=== PATIENT | female | born 1995 | race Caucasian/White ===

== ENCOUNTER 2016-11-11 10:05 | Emergency (ER) | payer MEDICAID ==
[~2016-11-11] VITALS: Ht 160 cm; Wt 80.1 kg
[~2016-11-11 10:05] MED LIST: FERR325T20 PO; IBUP-1222 PO; OXYC-302 PO; PRENATALS
[2016-11-11] MEDS ORDERED: ONDANSETRON ODT 4 MG ONE (11:43)
[2016-11-11] MEDS ORDERED: MAALOX/HYOSCYAMINE/LIDOCAINE 45 ML BOTTLE ONE (11:43)
[2016-11-11] MEDS ORDERED: FAMOTIDINE 20 MG/2 ML IVP ONE (12:00)
[2016-11-11] MEDS ORDERED: SODIUM CHLORIDE 0.9% 1,000ML IVBOLUS ONE (12:00)
[2016-11-11] MEDS ORDERED: ONDANSETRON 2MG/ML, 2ML IVPush ONE (12:00)
[2016-11-11] MEDS ORDERED: MAALOX/HYOSCYAMINE/LIDOCAINE 45 ML BOTTLE PO ONE (12:00)
[2016-11-11 12:06] LABS: BLOOD UREA NITROGEN 15 mg/dL (7-18)
[2016-11-11 12:10] LABS: ASPARTATE AMINO TRANSFERASE 6 U/L (15-37)
[2016-11-11 12:41] LABS: PATH.CAST-FLAG NOT PRESENT; SPERM-FLAG NOT PRESENT; SRC-FLAG NOT PRESENT; XTAL-FLAG NOT PRESENT; YLC-FLAG NOT PRESENT
[2016-11-11 12:42] LABS: DIFF TOTAL CELLS COUNTED 100 CELL DIFF
[2016-11-11 12:43] LABS: ANISOCYTOSIS 1+; LARGE PLATELETS 1+; MICROCYTOSIS 2+; VERIFY COUNTS? YES
[2016-11-11 12:49] LABS: HCG UR OBC PASS
[2016-11-11] MEDS ORDERED: ONDANSETRON ODT 4 MG PO ONE (13:00)
[2016-11-11 14:09] VITALS: BP 132/61
== END 2016-11-11 14:10 | disposition home or self-care (01) ==
LOC: ED 13:52
DX: K80.70 Calculus of gallbladder and bile duct without cholecystitis without obstruction (principal); R10.11 Right upper quadrant pain
CPT/HCPCS: 36415; 76700; 80053; 81001; 81025; 83690; 85025; 87086; 99285; Q0162

== ENCOUNTER 2017-04-08 11:59 | Emergency (ER) | payer MEDICAID ==
[~2017-04-08] VITALS: Ht 160 cm; Wt 80.6 kg
[~2017-04-08 11:59] MED LIST changes: +FERR325T18 PO; -FERR325T20 PO
[2017-04-08 12:03] VITALS: BP 113/72
== END 2017-04-08 13:43 | disposition home or self-care (01) ==
LOC: ED 12:25
DX: O23.12 Infections of bladder in pregnancy, second trimester (principal); Z3A.14 14 weeks gestation of pregnancy
CPT/HCPCS: 81001; 87086; 99284

== ENCOUNTER 2017-07-02 12:37 | Observation (INO) | payer MEDICAID ==
[~2017-07-02] VITALS: Ht 160 cm; Wt 83.1 kg
[2017-07-02 13:36] LABS: BASOPHILS # (AUTO) 0.01 x10^3/uL (0-0.1); BASOPHILS % (AUTO) 0 % (0-1); EOSINOPHILS % (AUTO) 0 % (1-7); LYMPHOCYTES # (AUTO) 0.44 x10^3/uL (1-3.4); LYMPHOCYTES % (AUTO) 6 % (22-44); MD NO; MEAN CORPUSCULAR HEMOGLOBIN 19.6 pg (27.0-34.8); MEAN CORPUSCULAR VOLUME 63.2 fL (80-100); MEAN PLATELET VOLUME 8.1 fL (7.4-10.4); MONOCYTES # (AUTO) 0.38 x10^3/uL (0.2-0.8); MONOCYTES % (AUTO) 5 % (2-9); NEUTROPHILS # (AUTO) 7.15 x10^3/uL (1.8-6.8); NEUTROPHILS % (AUTO) 90 % (42-75); PLATELET COUNT 288 x10^3/uL (130-400); RED BLOOD COUNT 4.49 x10^6/uL (3.82-5.3); RED CELL DISTRIBUTION WIDTH 17.1 % (9.6-15.2)
[2017-07-02] MEDS ORDERED: PREN1TAB60 PO (13:37)
[2017-07-02 13:38] VITALS: BP 103/59
[2017-07-02 13:38] LABS: MICROSCOPIC INDICATED
[2017-07-02 13:48] LABS: ALANINE AMINOTRANSFERASE 21 U/L (12-78); ALBUMIN 2.7 g/dL (3.4-5.0); ANION GAP 9 mmol/L (5-15); CALCIUM 8.3 mg/dL (8.5-10.1); CHLORIDE 104 mmol/L (98-107); CREATININE 0.45 mg/dL (0.55-1.02)
[2017-07-02 13:50] LABS: ALKALINE PHOSPHATASE 115 U/L (45-117); BILIRUBIN,TOTAL 0.7 mg/dL (0.2-1.0); TOTAL PROTEIN 7.4 g/dL (6.4-8.2)
[2017-07-02 14:43] LABS: RAPID INFLUENZA A POSITIVE (Negative); RAPID INFLUENZA B Negative (Negative)
[2017-07-02] MEDS ORDERED: ACETAMINOPHEN 500 MG TABLET PO ONE (16:30)
[2017-07-02] MEDS ORDERED: LACTATED RINGERS 1,000 ML IVBOLUS ONE (17:00)
[2017-07-02] MEDS ORDERED: ACETAMINOPHEN 325 MG TABLET ONE ×2 (17:17→21:40)
[2017-07-02] MEDS: OSELTAMIVIR 75 MG CAPSULE PO SCH (17:21)
[2017-07-02] MEDS ORDERED: ACETAMINOPHEN 325 MG/10.15 ML UDC PO SCH (17:30)
[2017-07-02] MEDS ORDERED: LACTATED RINGERS 1,000 ML IV SCH ×2 (18:00→18:01)
[2017-07-03] MEDS: OSELTAMIVIR 75 MG CAPSULE PO SCH (09:03)
[2017-07-03] MEDS ORDERED: ACETAMINOPHEN 325 MG TABLET PO ONE (09:30)
== END 2017-07-03 10:20 | disposition home or self-care (01) ==
LOC: LDOP 12:37 → EDIP 13:30 → LDIP 16:52
PROVIDERS: ADMIT Obstetrics & Gynecology; ATTEND Obstetrics & Gynecology
DX: O76 Abnormality in fetal heart rate and rhythm complicating labor and delivery (principal); O99.52 Diseases of the respiratory system complicating childbirth; J10.1 Influenza due to other identified influenza virus with other respiratory manifestations; R65.10 Systemic inflammatory response syndrome (SIRS) of non-infectious origin without acute organ dysfunction; Z37.0 Single live birth; Z83.3 Family history of diabetes mellitus; Z82.49 Family history of ischemic heart disease and other diseases of the circulatory system; Z3A.28 28 weeks gestation of pregnancy
CPT/HCPCS: 36415; 59025; 80053; 81001; 83605; 84145; 85025; 87086; 87400; 96360; 96361; 99201; G0378; J7120; 99211; G0463

== ENCOUNTER 2017-09-05 09:24 | Inpatient (IN) | payer MEDICAID ==
[~2017-09-05] VITALS: Ht 160 cm; Wt 82.7 kg
[~2017-09-05 09:24] MED LIST changes: +PREN1TAB60 PO
[2017-09-05] MEDS ORDERED: OXYTOCIN 30U/ 0.9% NaCL 500ML 500 ML IV ONE (10:07)
[2017-09-05] MEDS ORDERED: OXYTOCIN 30U/ 0.9% NaCL 500ML 500 ML IV PRN (10:07)
[2017-09-05] MEDS ORDERED: D5%-LACTATED RINGERS 1,000 ML IV SCH (10:07)
[2017-09-05] MEDS ORDERED: LACTATED RINGERS 1,000 ML IV SCH (10:07)
[2017-09-05 10:24] VITALS: BP 117/79
[2017-09-05] MEDS ORDERED: TERBUTALINE 1 MG/ML, 1ML IVPush PRN (10:30)
[2017-09-05] MEDS ORDERED: PENICILLIN GK 5,000,000 UNITS in SODIUM CHLORIDE 0.9% 100 ML IVPB ONE (10:30)
[2017-09-05] MEDS ORDERED: FENTANYL PF 100 MCG/2ML IVPush PRN (10:30)
[2017-09-05] MEDS ORDERED: FENTANYL PF 100 MCG/2ML IV PRN (10:30)
[2017-09-05] MEDS ORDERED: ONDANSETRON 2MG/ML, 2ML IVPush PRN (10:30)
[2017-09-05 10:56] LABS: MEAN CORPUSCULAR HEMOGLOBIN 19.3 pg (27.0-34.8); MEAN CORPUSCULAR HGB CONC 31.2 g/dL (32.4-35.8); MEAN CORPUSCULAR VOLUME 61.9 fL (80-100); MEAN PLATELET VOLUME 8.6 fL (7.4-10.4); PLATELET COUNT 310 x10^3/uL (130-400); RED BLOOD COUNT 4.71 x10^6/uL (3.82-5.3); RED CELL DISTRIBUTION WIDTH 20.1 % (9.6-15.2)
[2017-09-05 11:07] LABS: BASOPHILS # (AUTO) 0.04 x10^3/uL (0-0.1); BASOPHILS % (AUTO) 1 % (0-1); EOSINOPHILS # (AUTO) 0.02 x10^3/uL (0-0.4); EOSINOPHILS % (AUTO) 0 % (1-7); LYMPHOCYTES # (AUTO) 1.76 x10^3/uL (1-3.4); LYMPHOCYTES % (AUTO) 21 % (22-44); MD SCAN; MONOCYTES # (AUTO) 0.36 x10^3/uL (0.2-0.8); MONOCYTES % (AUTO) 4 % (2-9); NEUTROPHILS # (AUTO) 6.39 x10^3/uL (1.8-6.8); NEUTROPHILS % (AUTO) 75 % (42-75)
[2017-09-05] MEDS ORDERED: OXYTOCIN 30U/ 0.9% NaCL 500ML 500 ML ONE (11:17)
[2017-09-05] MEDS ORDERED: NEWBORN KIT ONE (11:17)
[2017-09-05] MEDS ORDERED: FENTANYL PF 100 MCG/2ML ONE (13:18)
[2017-09-05] MEDS: OXYTOCIN 30U/ 0.9% NaCL 500ML 500 ML IV SCH ×2 (13:23→23:23)
[2017-09-05] MEDS ORDERED: RHOGAM FROM BLOOD BANK 1 NOTE EA IM/IV ONE (13:30)
[2017-09-05] MEDS ORDERED: OXYcodone/APAP 5/325MG TABLET PO PRN ×2 (13:30)
[2017-09-05] MEDS ORDERED: ONDANSETRON 2MG/ML, 2ML IV PRN (13:30)
[2017-09-05] MEDS ORDERED: ACETAMINOPHEN 325 MG TABLET PO PRN ×2 (13:30)
[2017-09-05] MEDS ORDERED: MEASLES,MUMPS&RUBELLA VACC/PF 0.5 ML SQ PRN (13:30)
[2017-09-05] MEDS ORDERED: MAGNESIUM HYDROXIDE 8%, 30ML UDC PO PRN (13:30)
[2017-09-05] MEDS ORDERED: DOCUSATE 100 MG CAPSULE PO PRN (13:30)
[2017-09-05] MEDS ORDERED: CALCIUM CARBONATE 500 MG TAB.CHEW PO PRN (13:30)
[2017-09-05] MEDS ORDERED: MISOPROSTOL 200 MCG TABLET PR PRN (13:30)
[2017-09-05] MEDS ORDERED: DIPH,PERTUSS(ACELL),TET VAC/PF NC IM-VACC PRN (13:30)
[2017-09-05] MEDS ORDERED: MISOPROSTOL 200 MCG TABLET ONE (13:35)
[2017-09-05] MEDS ORDERED: LIDOCAINE 1%, 20ML ONE (13:35)
[2017-09-05] MEDS ORDERED: PENICILLIN GK 2,500,000 UNITS in DEXTROSE 5% 100 ML IVPB SCH (14:30)
[2017-09-05] MEDS ORDERED: IBUPROFEN 600 MG TABLET ONE (14:39)
[2017-09-05] MEDS ORDERED: OXYcodone/APAP 5/325MG TABLET ONE (14:40)
[2017-09-05] MEDS: IBUPROFEN 600 MG TABLET PO PRN (14:49)
[2017-09-05 16:30] VITALS: BP 108/71
[2017-09-05 19:56] VITALS: BP 110/72
[2017-09-06 00:20] VITALS: BP 98/63
[2017-09-06 04:15] VITALS: BP 108/69
[2017-09-06 05:21] LABS: BASOPHILS # (AUTO) 0.05 x10^3/uL (0-0.1); BASOPHILS % (AUTO) 1 % (0-1); EOSINOPHILS # (AUTO) 0.05 x10^3/uL (0-0.4); EOSINOPHILS % (AUTO) 1 % (1-7); LYMPHOCYTES # (AUTO) 3.14 x10^3/uL (1-3.4); LYMPHOCYTES % (AUTO) 33 % (22-44); MD NO; MEAN CORPUSCULAR HEMOGLOBIN 18.7 pg (27.0-34.8); MEAN CORPUSCULAR HGB CONC 30.4 g/dL (32.4-35.8); MEAN CORPUSCULAR VOLUME 61.6 fL (80-100); MEAN PLATELET VOLUME 8.7 fL (7.4-10.4); MONOCYTES # (AUTO) 0.42 x10^3/uL (0.2-0.8); MONOCYTES % (AUTO) 4 % (2-9); NEUTROPHILS # (AUTO) 6.01 x10^3/uL (1.8-6.8); NEUTROPHILS % (AUTO) 62 % (42-75); PLATELET COUNT 291 x10^3/uL (130-400); RED BLOOD COUNT 4.49 x10^6/uL (3.82-5.3); RED CELL DISTRIBUTION WIDTH 19.9 % (9.6-15.2)
[2017-09-06 07:10] VITALS: BP 107/70
[2017-09-06] MEDS ORDERED: PRENATAL VIT/IRON/FA 1 EACH TABLET PO SCH (09:00)
[2017-09-06] MEDS: OXYTOCIN 30U/ 0.9% NaCL 500ML 500 ML IV SCH ×2 (09:23→19:23)
[2017-09-06] MEDS: IBUPROFEN 600 MG TABLET PO PRN (16:07)
[2017-09-06 19:30] VITALS: BP 122/78
[2017-09-07] MEDS: OXYTOCIN 30U/ 0.9% NaCL 500ML 500 ML IV SCH (05:23)
[2017-09-07 07:45] VITALS: BP 111/72
[2017-09-07] MEDS ORDERED: IBUP-1222 PO (09:49)
== END 2017-09-07 15:13 | disposition home or self-care (01) | DRG 775 ==
LOC: LDOP 09:24 → LDIP 10:30 → 2NW 16:20
PROVIDERS: ADMIT Obstetrics & Gynecology; ATTEND Obstetrics & Gynecology
PROC: 10E0XZZ Delivery of Products of Conception, External Approach (ICD-10-PCS; principal; 2017-09-05)
DX: O42.02 Full-term premature rupture of membranes, onset of labor within 24 hours of rupture (principal); Z37.0 Single live birth; Z3A.37 37 weeks gestation of pregnancy
CPT/HCPCS: 36415; 85025; 86850; 86900; 87081; 89060; J2540; J3010; J2590; J7120; Q0114

== ENCOUNTER 2019-05-25 07:46 | Emergency (ER) | payer MEDICAID ==
[~2019-05-25] VITALS: Ht 160 cm; Wt 92.0 kg
[2019-05-25 08:08] VITALS: BP 122/83
--- NOTE | 2019-05-25 08:21 | NUR ---
TASK RN: PT AMBULATORY TO ROOM FROM TRIAGE. C/O COUGH, CONGESTION AND OCCATIONAL FEVER X 2 DAYS. TAKING NYQUIL AND DAYQUIL WITH NO RELIEF. CALL LIGHT W/I REACH, AWAITING PROVIDER EVAL.
[2019-05-25] MEDS ORDERED: KETOROLAC 30 MG/1 ML IM ONE (09:30)
[2019-05-25] MEDS ORDERED: KETOROLAC 30 MG/1 ML ONE (09:44)
== END 2019-05-25 10:38 | disposition home or self-care (01) ==
LOC: ED 10:00
DX: J02.8 Acute pharyngitis due to other specified organisms (principal); B97.89 Other viral agents as the cause of diseases classified elsewhere
CPT/HCPCS: 96372; 99283; J1885

== ENCOUNTER 2019-07-20 07:32 | Emergency (ER) | payer MEDICAID ==
[~2019-07-20] VITALS: Ht 160 cm; Wt 91.4 kg
[2019-07-20 07:33] VITALS: BP 119/78
[2019-07-20] MEDS ORDERED: PHENAZOPYRIDINE 200 MG TABLET PO ONE (08:00)
[2019-07-20] MEDS ORDERED: PHENAZOPYRIDINE 200 MG TABLET ONE (08:09)
--- NOTE | 2019-07-20 08:12 | NUR ---
URINE COLLECTED AND WALKED TO LAB.
--- NOTE | 2019-07-20 08:12 | NUR ---
PT MEDICATED PER SEP. PT RESTING WITH NO COMPLAINTS. WARM BLANKET PROVIDED.
[2019-07-20 08:17] LABS: HCG UR SG 1.025 (1.003-1.030)
[2019-07-20 08:44] LABS: MICROSCOPIC INDICATED
[2019-07-20 08:45] LABS: CULTURE INDICATED? YES
--- NOTE | 2019-07-20 10:49 | NUR ---
Patient/Caregiver given discharge instructions and they have confirmed that they understand the instructions. Patient ambulatory with steady gait.
== END 2019-07-20 10:50 | disposition home or self-care (01) ==
LOC: ED 08:05
DX: N30.00 Acute cystitis without hematuria (principal)
CPT/HCPCS: 81001; 81025; 87086; 99283

== ENCOUNTER 2020-11-25 14:58 | Emergency (ER) | payer MEDICAID ==
[~2020-11-25] VITALS: Ht 160 cm; Wt 94.0 kg
[~2020-11-25 14:58] MED LIST changes: -OXYC-302 PO; +OXYC1TAB14 PO
[2020-11-25 16:00] LABS: MICROSCOPIC AUTO
[2020-11-25 16:16] LABS: ALBUMIN 3.8 g/dL (3.4-5.0); ANION GAP 4 mmol/L (5-15); CALCIUM 8.8 mg/dL (8.5-10.1); CHLORIDE 106 mmol/L (98-107); CREATININE 0.63 mg/dL (0.55-1.02)
[2020-11-25 16:22] LABS: BASOPHILS % (AUTO) 1 % (0-1); EOSINOPHILS % (AUTO) 2 % (1-7); LYMPHOCYTES % (AUTO) 25 % (22-44); MEAN CORPUSCULAR HGB CONC 33.7 g/dL (32.4-35.8); MEAN PLATELET VOLUME 9.8 fL (7.4-10.4); MONOCYTES % (AUTO) 6 % (2-9); NEUTROPHILS % (AUTO) 67 % (42-75); PLATELET COUNT 307 x10^3/uL (130-400); RED BLOOD COUNT 5.06 x10^6/uL (3.82-5.3); RED CELL DISTRIBUTION WIDTH 14.3 % (9.6-15.2)
[2020-11-25 16:27] LABS: MD NO
--- NOTE | 2020-11-25 17:19 | NUR ---
PT AMBULATORY TO ROOM FROM LOBBY AT THIS TIME
--- NOTE | 2020-11-25 17:28 | NUR ---
PT S/P IUD PLACEMENT 11/07, HAD BEEN DOING WELL W/ NO COMPLAINTS. AFTER HAVING INTERCOURSE ON 11/23 DEVELOPED KEN LOWER ABD PAIN WHICH RESSOLVED BUT THEN HAS RTD WITH EACH BOWEL MOVEMENT. PT RPTS CONSTIPATION AND SHE TOOK STOOL LAXATIVE WITH RESULT AND KNOW HAS DIARRHEA. VSS, CALL LIGHT W/I REACH. ER PROVIDER EVAL PENDING
[2020-11-25] MEDS ORDERED: FOSFOMYCIN 3 GM PACKET PO ONE (18:00)
[2020-11-25] MEDS ORDERED: FOSFOMYCIN 3 GM PACKET ONE (18:10)
[2020-11-25 18:20] VITALS: BP 114/77
--- NOTE | 2020-11-25 18:20 | NUR ---
Patient/Caregiver given discharge instructions and they have confirmed that they understand the instructions. Patient ambulatory with steady gait.
== END 2020-11-25 19:12 | disposition home or self-care (01) ==
LOC: ED 18:23
DX: N30.00 Acute cystitis without hematuria (principal); N83.291 Other ovarian cyst, right side
CPT/HCPCS: 36415; 76830; 80048; 81001; 82040; 84702; 85025; 87086; 99284